=== PATIENT | female | born 1960 | race Caucasian/White ===

== ENCOUNTER 2016-09-13 03:02 | Emergency (ER) | payer OTHER ==
[~2016-09-13] VITALS: Ht 157.5 cm; Wt 66.6 kg
[~2016-09-13 03:02] MED LIST: ALLE30TA3 PO; CLIN150 PO; LORT5TAB PO; SULF1TAB47 PO
[2016-09-13 03:08] VITALS: BP 141/89; PULSE 87; RESP 16; TEMP 98.2; O2SAT 98
[2016-09-13] MEDS ORDERED: [UNRECOGNIZED DRUG - REMARK] (03:15)
[2016-09-13] MEDS ORDERED: IBUP-232 PO (03:48)
[2016-09-13] MEDS ORDERED: BACT800T5 PO (03:48)
[2016-09-13] MEDS ORDERED: HYDR-3533 PO (03:48)
--- NOTE | 2016-09-13 03:50 | PD ---
HPI Chief Complaint: ENT Complaint Time Seen by Provider: 03:44 Travel History International Travel<30 days: No Contact w/Intl Traveler<30days: No Traveled to known affect area: No History of Present Illness HPI 56-year-old female presents to the emergency department for complaint of sudden onset severe left ear pain since 2 AM. Patient states that she went to bed feeling fine other than she's had some upper respiratory infection and cold type symptoms for a while; "Just like everybody else". Patient's had some sinus pressure. Patient denies any chronic medical concerns or conditions other than high cholesterol. Patient rates pain as severe. Patient concerned that possible foreign body. PFSH Past Medical History Narrative Medical High cholesterol endometriosis tobacco use nursing notes reviewed High Cholesterol: Yes Diminished Hearing: No Reproductive: Yes (ENDOMETRIOSIS) Influenza Vaccination: Yes ?: Not Tubal Ligation: Yes Past Surgical History Tonsillectomy: Yes Social History Alcohol Use: Yes (1-2 DRINKS PER WEEK) Tobacco Use: Yes (1/2 PK PER DAY) Substance Use: No Allergies-Medications (Allergen,Severity, Reaction): Coded Allergies: Penicillin (Verified Allergy, Severe, HIVES, 09/13/16) Reported Meds & Prescriptions Reported Meds & Active Scripts Active Reported [cholesterol med?] Review of Systems Except as stated in HPI: all other systems reviewed are Neg General / Constitutional: No: Fever, Chills HENT: Positive: Congestion, Earache Cardiovascular: No: Chest Pain or Discomfort Respiratory: No: Shortness of Breath Gastrointestinal: No: Vomiting Genitourinary: No: Flank Pain Musculoskeletal: No: Pain Skin: No Rash Neurologic: No: Weakness Psychiatric: No: Anxiety Hematologic/Lymphatic: No: Lymph Node Enlargement Physical Exam Narrative GENERAL: Well-developed well-nourished female in no acute distress no respiratory distress SKIN: Warm and dry. HEAD: Normocephalic. EYES: No scleral icterus. No injection or drainage. ENT: Mucous membranes moist airway is patent right tympanic membranes no redness no dullness to loss of landmarks; left tympanic membrane red dull with mild bulging of TM no perforation no foreign body in the external auditory canals bilaterally. NECK: Supple, trachea midline. No JVD or lymphadenopathy. No meningismus no nuchal rigidity. CARDIOVASCULAR: Regular rate and rhythm without murmurs, gallops, or rubs. RESPIRATORY: Breath sounds equal bilaterally. No accessory muscle use. GASTROINTESTINAL: Abdomen soft, non-tender, nondistended. MUSCULOSKELETAL: No cyanosis, or edema. BACK: Nontender without obvious deformity. No CVA tenderness. Data Data Last Documented VS Vital Signs Date Time Temp Pulse Resp B/P Pulse Ox O2 Delivery O2 Flow Rate FiO2 09/13/16 03:08 98.2 87 16 141/89 98 Room Air MDM Medical Decision Making Medical Screen Exam Complete: Yes Emergency Medical Condition: Yes Medical Record Reviewed: Yes Differential Diagnosis Otalgia, sinusitis, otitis externa, otitis media, URI Narrative Course Patient with exam consistent with otitis media; patient given first dose of antibiotic along with ibuprofen 600 mg; patient stable for outpatient management Diagnosis Primary Impression: Otitis media Qualified Code: H66.92 - Left otitis media, unspecified chronicity, unspecified otitis media type Referrals: Primary Care Physician call for appointment Patient Instructions: General Instructions Departure Forms: Tests/Procedures, Work Release Special Instructions: no work x 1 day Additional Instructions: No work times one day Take medications as prescribed May take acetaminophen/nauseated for fever 100.4F or greater May use prescription ibuprofen for fever 100.4F or greater and/or for pain associated with inflammation May use [id number] Afrin decongestant spray to the left nostril per package directions for decongestant relief Follow-up with primary care provider call office to schedule follow-up appointment Return to the emergency department for a concerns or change in condition Med/Other Pt SpecificInfo: Prescription(s) given Scripts Ibuprofen 600 Mg [id number] Mg PO Q6H PRN (Pain/Inflammation) #12 TAB Ref 0 Prov:Corie Marques MD 09/13/16 Hydrocodone-Acetaminophen (Lortab)5-325 Mg Tab1 Tab PO Q6H PRN (PAIN) #12 TAB Ref 0 Prov:Corie Marques MD 09/13/16 Sulfamethoxazole-Trimethoprim (Bactrim DS)800-160 Mg Tab1 Tab PO BID #14 TAB Ref 0 Prov:Corie Marques MD 09/13/16 Disposition: 01 DISCHARGE HOME Condition: Stable Corie Marques MD Sep 13, 2016 03:50
[2016-09-13] MEDS ORDERED: SULFAMETHOXAZOLE-TRIMETHOPRIM DS 800-160 MG TAB PO ONE (04:00)
[2016-09-13] MEDS ORDERED: IBUPROFEN 600 MG TAB PO ONE (04:00)
== END 2016-09-13 04:04 | disposition home or self-care (01) ==
LOC: PHEFT 03:02
DX: H66.92 Otitis media, unspecified, left ear (principal); E78.00 Pure hypercholesterolemia, unspecified; Z72.0 Tobacco use
CPT/HCPCS: 99282